=== PATIENT | female | born 1945 | race Caucasian/White ===

== ENCOUNTER 2018-10-10 12:35 | Observation (INO) ==
--- NOTE | 2018-10-10 13:40 | XRay Report ---
XR chest 1V portable CLINICAL HISTORY: sob dyspnea COMPARISON STUDY: 10/04/2016 FINDINGS: Mild cardiomegaly. Prominent pulmonary vasculature. Diaphragms are smooth. IMPRESSION: Developing congestive heart failure. The above report was generated using voice recognition software. It may contain grammatical, syntax or spelling errors. Electronically signed by: Tino Mendez M.D. 10/10/2018 1:39 PM
[2018-10-10 13:51] LABS: Basophils # (auto) 0.02 K/uL (0-0.2); Basophils % (auto) 0.2 %; Eosinophils # (auto) 0.14 K/uL (0-0.5); Eosinophils % (auto) 1.7 %; Hematocrit (blood only) 32.3 % (37-47); Hemoglobin 9.7 g/dL (12.0-16.0); Immature Granulocytes # (auto) 0.01 K/uL (0.00-0.02); Immature Granulocytes % (auto) 0.1 %; Lymphocytes # (auto) 1.49 K/uL (1.2-3.4); Lymphocytes % (auto) 17.7 %; Mean Corpuscular Volume 77.5 fL (80-100); Mean Platelet Volume 8.9 fL (7.4-10.4); Monocytes # (auto) 0.61 K/uL (0.11-0.59); Monocytes % (auto) 7.3 %; Neutrophils # (auto) 6.14 K/uL (1.4-6.5); Platelet Count 245 K/uL (130-400); RDW Coefficient of Variation 15.7 % (11.5-14.5); RDW Standard Deviation 44.5 fL (36.4-46.3); Red Blood Count 4.17 M/uL (4.2-5.4); White Blood Count 8.41 K/uL (4.8-10.8)
[2018-10-10 14:00] LABS: INR 1.1 (0.9-1.1); Partial Thromboplastin Ratio 1.1; Partial Thromboplastin Time 28.8 Seconds (21.0-31.0); Prothrombin Time 11.2 Seconds (9.0-12.0)
[2018-10-10 14:08] LABS: Alanine Aminotransferase 16 U/L (12-78); Albumin Level 3.1 gm/dl (3.4-5.0); Aspartate Aminotransferase 12 U/L (15-37); BUN Creatinine Ratio 14.1 (10-20); Blood Urea Nitrogen 16 mg/dl (7-18); Calcium 8.5 mg/dl (8.5-10.1); Carbon Dioxide 27 mmol/L (21-32); Chloride 103 mmol/L (98-107); Est GFR (African American) 56.8; Glucose 107 mg/dl (70-99); Magnesium 1.9 mg/dl (1.8-2.4); Potassium 4.2 mmol/L (3.5-5.1); Sodium 137 mmol/L (136-145)
[2018-10-10 14:19] LABS: Albumin Globulin Ratio 0.7 (0.9-2); Alkaline Phosphatase 127 U/L (45-117); Bilirubin,Total 0.3 mg/dl (0.1-1); Globulin 4.4 gm/dl (2.5-4.0); Total Protein 7.5 gm/dl (6.4-8.2); Troponin I < 0.015 ng/ml (0-0.045)
--- NOTE | 2018-10-10 14:40 | Ultrasound Report ---
US abdomen limited HISTORY: Trauma. Pain. trauma to left upper quad, poss spleen injury. COMPARISON: None. FINDINGS: Pancreas: The pancreas demonstrates a normal echotexture. Liver: Unremarkable. Spleen. Maximum dimension 13 cm. Uniform echogenicity. No perisplenic fluid. Left kidney. Maximum dimension 10.8 cm. No evidence for hydronephrosis. 3.5 cm mid and upper pole cys t. IMPRESSION: 1. Several left renal cysts. 2. Normal left kidney and spleen. 3. No acute process is appreciated. The above report was generated using voice recognition software. It may contain grammatical, syntax or spelling errors. Electronically signed by: Tino Mendez M.D. 10/10/2018 2:39 PM
--- NOTE | 2018-10-10 14:43 | Ultrasound Report ---
US venous doppler LE LT CLINICAL HISTORY: Torus of breath. Left lower extremity swelling. COMPARISON STUDY: No previous studies for comparison. FINDINGS: Real-time and color flow Doppler imaging were performed. Flow was seen within the femoral, popliteal and calf veins with no intraluminal thrombus demonstrated. The saphenous vein is patent. IMPRESSION: No evidence of left lower extremity DVT. Electronically signed by: Augustine Rebolledo M.D. 10/10/2018 2:41 PM
[2018-10-10 15:58] LABS: Appearance Urine Clear (Clear); Bilirubin Urine Negative (Negative); Color Urine Yellow; Glucose Urine UA Negative (Negative); Ketones Urine Negative (Negative); Leukocyte Esterase Urine Negative (Negative); Nitrite Urine Negative (Negative); Protein Urine Negative (Negative); Specific Gravity Urine 1.014 (1.000-1.030); Urobilinogen Urine Negative (Negative)
--- NOTE | 2018-10-10 16:53 | History & Physical Report ---
Date of Service October 10, 2018 Assessment & Plan (1) Chest pain, precordial: This is a 73-year-old white female with significant past medical history of HTN , HLD, CKD stage III, GERD, depression, osteoarthritis, chronic back pain, T2 DM who presents to [facility] secondary to dyspnea on exertion times 1 month/chest pain times 1 day. In ED workup revealed microcytic anemia hemoglobin 9.7, hematocrit 32.3, platelets 245, WBC 8.4, BUN 16, creatinine 1.12, glucose 107, TSH 1.54, BNP 46, troponin within limits. CXR reveals cardiomegaly and concern for CHF; however BNP wnl. LLE venous U/S negative, LUQ U/S negative for acute abnormality, except L renal cysts. Chest pain is reproducible with known inciting event. No significant ST T wave ecg changes, troponin, bnp with in limits Most likely MSK in etiology, treat conservatively Patient with cardiac risk factors including T2DM, HTN, HLD, Morbid obesity Given risk factors will admit to r/o Life altering causes of chest pain and STARK -admit to telemetry under observation -consult cardiology, known to Tino Vaughn -had echo 05/17 EF 60-64%, grade 1DD, inferior wall motion abn which is unchanaged -given new onset STARK, will repeat Echo -daily ecg r/o arrhythmia -anemia w/u with iron panel, vit b12, folate -had sleep study as outpatient 10/07, await results -no apparent hypoxia, tachycardia, low risk for PE per Wells criteria -?obstructive vs restrictive pulmonary process (2) STARK (dyspnea on exertion): -DDx broad including Cardiac like CAD, Pulm HTN, CHF, EVELIA, Pulmonary COPD vs restrictive process, Anemia, obesity or obesity -hypoventilation syndrome, deconditioning, PE -further work up noted above (3) Microcytic anemia: -repeat CBC in a.m. -anemia w/u including iron panel, vit b12, folate -FOBT -last colonoscopy 07/2017 with hyperplastic polyp -H/H 05/17 was 11.1 and 35.9 (4) HTN (hypertension): -repeat BP was 139/90 -continue metoprolol, losartan, HCTZ -ideal < 130/80 given T2DM (5) HLD (hyperlipidemia): -continue statin -fasting lipid panel in a.m. (6) T2DM (type 2 diabetes mellitus): -A1C 7.0 10/03/18 -recently started on metformin, will hold while inpatient -Novolog ISS per protocol -on losartan for renal protection (7) CKD (chronic kidney disease) stage 3, GFR 30-59 ml/min: -baseline creatinine 1.0 -renal fxn stable (8) Obesity: -encourage lifestyle modifications (9) GERD (gastroesophageal reflux disease): -continue PPI (10) Depression: -continue zoloft (11) DVT prophylaxis: -lovenox 40mg SQ Q24hr Disposition: D/C to home when medically able Follow up: with PCP Dr. Cool/Sherley Angel PA-C upon discharge Patient seen in collaboration with Dr. Vaughn, please see addendum History of Present Illness Chief Complaint: Dyspnea on exertion times 1 month/chest pain times 1 day. Primary Care Provider: Jonny Cool This is a 73-year-old white female with significant past medical history of HTN , HLD, CKD stage III, GERD, depression, osteoarthritis, chronic back pain, T2 DM who presents to [facility] secondary to dyspnea on exertion times 1 month/chest pain times 1 day. Patient presented at request of PCP who saw patient in office earlier in the afternoon. Patient notes yesterday she was bending over to picket [employer] items off the floor, bent over couch armrest when she felt a, "pop," in her left chest wall. She has been having left-sided chest discomfort since event. Has not tried anything over-the- counter. Worse with touch, left arm movement. Nothing makes better. Rated approximately 5/10. Further significance patient has been experiencing dyspnea on exertion for the past 1 month. Symptoms progressively worsening. Gets STARK even with daily activities including cooking, bathing, dressing. States she would be unable to get up off the bed and walk to her ER room door. Prior to the past month she feels she would be able to walk 1 to 2 [address] without any shortness of breat; however she would get back pain. She denies any recent illness, fever, chills, sweats, lightheadedness, dizziness, syncope, palpitations, hemoptysis, cough, nausea, vomiting, diarrhea, abdominal pain, hematuria, hematochezia, melena. Denies kinga orthopnea but states she is unable to sleep on her back, uses 2 pillows. Appetite has been stable. Denies unintentional weight loss. 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 Recently had a sleep study on 10/07/18. Allergies Allergy/AdvReac Type Severity Reaction Status Date / Time No Known Allergies Allergy Unverified 10/04/16 16:52 Home Medications Home Medications Medication Instructions Recorded Confirmed Type ospiuep-ysktgbyhxbpog-finhavoq 2 tab PO Q6H PRN 10/10/18 10/10/18 History [Excedrin Migraine] atorvastatin 20 mg PO DAILY 10/10/18 10/10/18 History buspirone 15 mg PO BID 10/10/18 10/10/18 History docusate sodium [Stool Softener] 100 mg PO DAILY 10/10/18 10/10/18 History hydrochlorothiazide 12.5 mg PO DAILY 10/10/18 10/10/18 History loratadine 10 mg PO DAILY 10/10/18 10/10/18 History losartan 50 mg PO DAILY 10/10/18 10/10/18 History metformin 500 mg PO BID 10/10/18 10/10/18 History metoprolol succinate 25 mg PO DAILY 10/10/18 10/10/18 History upmyubgy-mcw-fzbk-FA-lutein 1 tab PO DAILY 10/10/18 10/10/18 History [Centrum Silver Women] omeprazole 40 mg PO DAILY 10/10/18 10/10/18 History ondansetron 4 mg PO Q6 PRN 10/10/18 10/10/18 History sertraline 100 mg PO DAILY 10/10/18 10/10/18 History tramadol 50 mg PO QID PRN 10/10/18 10/10/18 History Past Med/Surg History Medical History HTN (hypertension) HLD (hyperlipidemia) T2DM (type 2 diabetes mellitus) CKD (chronic kidney disease) stage 3, GFR 30-59 ml/min Microcytic anemia Obesity GERD (gastroesophageal reflux disease) Osteoarthritis Depression Carotid stenosis DJD (degenerative joint disease) Surgical History History of bilateral knee arthroplasty History of arthroplasty of right shoulder History of total hysterectomy with bilateral salpingo-oophorectomy (BSO) History of cataract extraction History of hernia repair History of cholecystectomy Family History Father Colon cancer Mother Diabetes Other Family history non-contributory Social History marital status: marital status details: 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 Safe at Home: Yes Smoking Status: Former smoker Years Smoked: 15 Cigarettes per Day: 10-20 Smoking End Date: 1974 Hx Alcohol Use: Yes Alcohol Intake Frequency: holidays/special occasions only Hx Substance Use: No Preferred Language: [place] Review of Systems All systems reviewed & are unremarkable except as noted in HPI & below Physical Exam 2 Vital Signs (Past 24 Hours): Last Vital Signs Temp 36.6 C 10/10/18 12:44 Pulse 87 10/10/18 16:00 Resp 18 10/10/18 16:00 BP 186/106 H 10/10/18 16:00 Pulse Ox 96 10/10/18 16:00 Physical Exam: Gen: Morbidly obese F, NAD, sitting up in bed, flat affected, conversing easily, no SOB w/ conversation Head: Normocephalic, Atraumatic Eyes: Sclera normal, no conjunctival injection, PERRLA, EOMI ENT: Gross hearing intact, normal pharynx, mucous membranes dry Neck: supple, no adenopathy, No JVD, Resp: Clear to auscultation b/l, no wheeze, rales, rhonchi. 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 Extremities: LLE >RLE but no kinga edema bilaterally Skin: warm, moist, no rash, negative turgor, cap refill < 2sec Neuro: Alert and oriented x 3, speech normal,flat mood/affect, cran nerve 2-12 intact grossly : deferred Results & Data Laboratory Results Short CBC 10/10/18 Range/Units 13:30 WBC 8.41 (4.8-10.8) K/uL Hgb 9.7 L (12.0-16.0) g/dL Hct 32.3 L (37-47) % Plt Count 245 (130-400) K/uL BMP 10/10/18 13:30 Sodium 137 Potassium 4.2 Chloride 103 Carbon Dioxide 27 BUN 16 Creatinine 1.12 Glucose 107 H Calcium 8.5 Cardiac Enzymes 10/10/18 Range/Units 13:30 Troponin I < 0.015 (0-0.045) ng/ml Liver Function 10/10/18 Range/Units 13:30 Total Bilirubin 0.3 (0.1-1) mg/dl AST 12 L (15-37) U/L ALT 16 (12-78) U/L Alkaline Phosphatase 127 H (45-117) U/L Albumin 3.1 L (3.4-5.0) gm/dl Urine 10/10/18 Range/Units 15:25 Urine Color Yellow Urine Appearance Clear (Clear) Urine pH 5.0 (4.5-7.5) Ur Specific [place] 1.014 (1.000-1.030) Urine Protein Negative (Negative) Urine Glucose (UA) Negative (Negative) Diagnostic Findings LLE Venous doppler: FINDINGS: Real-time and color flow Doppler imaging were performed. Flow was seen within the femoral, popliteal and calf veins with no intraluminal thrombus demonstrated. The saphenous vein is patent. IMPRESSION: No evidence of left lower extremity DVT. CXR: FINDINGS: Mild cardiomegaly. Prominent pulmonary vasculature. Diaphragms are smooth. IMPRESSION: Developing congestive heart failure. Abd U/S: IMPRESSION: 1. Several left renal cysts. 2. Normal left kidney and spleen. 3. No acute process is appreciated. ECG Rate (beats per minute): 98 Rhythm: normal sinus Code Status & VTE Plan Code Status Full Code VTE Prophylaxis Plan VTE Prophylaxis will be ordered: Yes Supervising Physician Co-Signing Physician Notes I have seen and examined the patient and have discussed the case with the provider above. I agree with the assessment and plan as stated. Will rule out ACS overnight although agree with likely musculoskeletal etiology. On exam intercostal muscles the left anterior chest wall are exquisitely tender to palpation. She specifically mentioned bending down standing back up and feeling a strain in this area. Agree with repeat echo in the morning as new symptoms have evolved since prior echo in April. If no improvement with pain control efforts, may consider chest CT to rule out displaced rib fracture. Feel this is less likely right now as patient was not sure she heard a pop and there was no trauma to her chest wall. Cardiology to see patient in the morning. Roderick, DO
--- NOTE | 2018-10-10 16:54 | Emergency Department Note ---
Entered by Walter Leahy acting as a scribe for History of Present Illness General Chief complaint: Referred by Doctor Stated complaint: SENT BY DOCTOR Time Seen by Provider: 10/10/18 12:57 Source: patient Limitations: no limitations History of Present Illness Provider complaint: left rib pain Onset (ago): day(s) (2) Location: abdomen (Left ribs) Radiation: extremity (Left shoulder) Pain Consistency: + constant Maximum Pain Intensity: 8 Quality: + other ("Broke ribs or pulled muscle" ) Associated symptoms: + chest pain (Heaviness) and + shortness of breath The patient is a 73 year old female who presents to the Emergency Room with complaints of constant pain over her left ribs that began 2 days ago. The patient states that she "bent over the arm of her couch" two days ago to pick something up and heard a "crack" in her left side. She has had constant pain over the left ribs since this episode, which she describes as feeling like a "broken rib or pulled muscle." She describes the severity of the pain yesterday as "terrible" and adds that it does intermittently radiate up into the left shoulder. She visited with her primary care office in [facility] who referred her to the Emergency Department for EKG changes. The patient notes that she has felt unusually short of breath intermittently for the past 1.5 months. This shortness of breath is worsened with exertion and presents with associated chest "heaviness." She has not had any fevers. She has no history of myocardial infarctions, but notes she does have carotid stenosis. The patient had a nuclear stress test performed 1 year ago and was told that she "did good" on the evaluation. Home Medications Home Medications Medication Instructions Recorded Confirmed Type beawwvg-eaamiaigglqis-[id number] 2 tab PO Q6H PRN 10/10/18 10/10/18 History [Excedrin Migraine] atorvastatin 20 mg PO DAILY 10/10/18 10/10/18 History buspirone 15 mg PO BID 10/10/18 10/10/18 History docusate sodium [Stool Softener] 100 mg PO DAILY 10/10/18 10/10/18 History hydrochlorothiazide 12.5 mg PO DAILY 10/10/18 10/10/18 History loratadine 10 mg PO DAILY 10/10/18 10/10/18 History losartan 50 mg PO DAILY 10/10/18 10/10/18 History metformin 500 mg PO BID 10/10/18 10/10/18 History metoprolol succinate 25 mg PO DAILY 10/10/18 10/10/18 History ikshpkjx-geb-qhfh-FA-lutein 1 tab PO DAILY 10/10/18 10/10/18 History [Centrum Silver Women] omeprazole 40 mg PO DAILY 10/10/18 10/10/18 History ondansetron 4 mg PO Q6 PRN 10/10/18 10/10/18 History sertraline 100 mg PO DAILY 10/10/18 10/10/18 History tramadol 50 mg PO QID PRN 10/10/18 10/10/18 History Allergies Allergy/AdvReac Type Severity Reaction Status Date / Time No Known Allergies Allergy Unverified 10/04/16 16:52 Past Med/Surg History Medical History HTN (hypertension) HLD (hyperlipidemia) T2DM (type 2 diabetes mellitus) CKD (chronic kidney disease) stage 3, GFR 30-59 ml/min Microcytic anemia Obesity GERD (gastroesophageal reflux disease) Osteoarthritis Depression Carotid stenosis DJD (degenerative joint disease) Surgical History History of bilateral knee arthroplasty History of arthroplasty of right shoulder History of total hysterectomy with bilateral salpingo-oophorectomy (BSO) History of cataract extraction History of hernia repair History of cholecystectomy Family History Father Colon cancer Mother Diabetes Other Family history non-contributory Social History marital status: 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 and A total of 10 systems reviewed and were otherwise negative Physical Exam Vital Signs Vital Signs - 24 hr 10/10/18 12:44 10/10/18 13:23 10/10/18 14:00 Temperature 36.6 C Temperature Source Oral Sepsis Recent Fever Within 48 Hours No Sepsis New/Unexplained Change in Mental Status No Sepsis Action Taken by Nursing No Action Required Pulse Rate 94 H 94 H Pulse Rate [Apical] 82 Pulse Rhythm [Apical] Regular Respiratory Rate 22 22 20 Respiratory Effort / Characteristics Respiratory Depth Normal Blood Pressure 159/90 H Blood Pressure [Left Arm] 115/91 Blood Pressure Mean 113 Blood Pressure Mean [Left Arm] 99 Pulse Oximetry 96 96 100 Oxygen Delivery Method Room Air Room Air Room Air 10/10/18 16:00 10/10/18 18:00 10/10/18 18:28 Temperature Temperature Source Sepsis Recent Fever Within 48 Hours Sepsis New/Unexplained Change in Mental Status Sepsis Action Taken by Nursing Pulse Rate 80 Pulse Rate [Apical] 87 Pulse Rhythm [Apical] Regular Respiratory Rate 18 18 Respiratory Effort / Characteristics SOB on Exertion Respiratory Depth Normal Blood Pressure 137/90 Blood Pressure [Left Arm] 186/106 H Blood Pressure Mean Blood Pressure Mean [Left Arm] 132 Pulse Oximetry 96 96 Oxygen Delivery Method Room Air Room Air Room Air GENERAL: Patient is in no acute distress. HEENT: No acute trauma, normocephalic atraumatic, mucous membranes moist, no nasal congestion, no scleral icterus. CHEST: There is tenderness to the left lateral and anterior low ribs. No contusion present. NECK: No stridor, no adenopathy, no meningismus, trachea is midline. LUNGS: Clear to auscultation bilaterally, no wheeze, no rhonchi, breath sounds equal. HEART: Without murmurs gallops or rubs, regular rate and rhythm. ABDOMEN: Soft, with tenderness to the left upper quadrant, bowel sounds positive , no hernias, no peritonitis. EXTREMITIES: Mild bilateral pedal edema worse on the left, full range of motion of all the joints without pain or difficulty, no signs for acute trauma. NEUROLOGIC: Oriented x 3, no acute motor or sensory deficits, no focal weakness. SKIN: No rash, no jaundice, no diaphoresis. Course 1301: Past medical records reviewed. The patient was evaluated in room C11B, and a complete history and physical examination were performed. 1538: I reviewed the patient's case with [facility] Hospitalist BHAVIN. She will evaluate the patient for further management. 1547: I updated the patient at this time. She expresses understanding and agreement with the treatment plan. Consultations Consultation #1: [id number]: I reviewed the patient's case with [facility] Hospitalist BHAVIN. She will evaluate the patient for further management. Medical Decision Making Differential Diagnosis Differential Diagnosis includes: anemia, AR, angina, COPD, pneumonia, CHF, DVT , PE, rib fracture, and splenic injury. Medical Records Attestation: I reviewed the patient's medical records. Home Medications Current Medication List: was personally reviewed by me Laboratory Data Attestation: I reviewed the patient's lab results. Result diagrams: 10/10/18 13:30 10/10/18 13:30 Lab Results 10/10/18 10/10/18 10/10/18 Range/Units 13:30 13:30 13:30 WBC 8.41 (4.8-10.8) K/uL RBC 4.17 L (4.2-5.4) M/uL Hgb 9.7 L (12.0-16.0) g/dL Hct 32.3 L (37-47) % MCV 77.5 L (80-100) fL MCH 23.3 L (25-34) pg MCHC 30.0 L (32-36) g/dL RDW Std Deviation 44.5 (36.4-46.3) fL RDW Coeff of Elizabeth 15.7 H (11.5-14.5) % Plt Count 245 (130-400) K/uL MPV 8.9 (7.4-10.4) fL Immature Gran % (Auto) 0.1 % Neut % (Auto) 73.0 % Lymph % (Auto) 17.7 % Knox % (Auto) 7.3 % Eos % (Auto) 1.7 % Baso % (Auto) 0.2 % Immature Gran # (Auto) 0.01 (0.00-0.02) K/uL Neut # (Auto) 6.14 (1.4-6.5) K/uL Lymph # (Auto) 1.49 (1.2-3.4) K/uL Knox # (Auto) 0.61 H (0.11-0.59) K/uL Eos # (Auto) 0.14 (0-0.5) K/uL Baso # (Auto) 0.02 (0-0.2) K/uL PT 11.2 (9.0-12.0) Seconds INR 1.1 (0.9-1.1) APTT 28.8 (21.0-31.0) Seconds PTT Ratio 1.1 Sodium 137 (136-145) mmol/L Potassium 4.2 (3.5-5.1) mmol/L Chloride 103 (98-107) mmol/L Carbon Dioxide 27 (21-32) mmol/L Anion Gap 7.0 (3-11) BUN 16 (7-18) mg/dl Creatinine 1.12 (0.6-1.2) mg/dl Est Cr Clr Drug Dosing 57.0 ml/min Est GFR ( Amer) 56.8 Est GFR (Non-Af Amer) 49.0 BUN/Creatinine Ratio 14.1 (10-20) Glucose 107 H (70-99) mg/dl Calcium 8.5 (8.5-10.1) mg/dl Magnesium 1.9 (1.8-2.4) mg/dl Total Bilirubin 0.3 (0.1-1) mg/dl AST 12 L (15-37) U/L ALT 16 (12-78) U/L Alkaline Phosphatase 127 H (45-117) U/L Troponin I < 0.015 (0-0.045) ng/ml NT-Pro-B Natriuret Pep (0-900) pg/ml Total Protein 7.5 (6.4-8.2) gm/dl Albumin 3.1 L (3.4-5.0) gm/dl Globulin 4.4 H (2.5-4.0) gm/dl Albumin/Globulin Ratio 0.7 L (0.9-2) TSH 1.540 (0.300-4.500) uIu/ml Urine Color Urine Appearance (Clear) Urine pH (4.5-7.5) Ur Specific [place] (1.000-1.030) Urine Protein (Negative) Urine Glucose (UA) (Negative) Urine Ketones (Negative) Urine Blood (Negative) Urine Nitrite (Negative) Urine Bilirubin (Negative) Urine Urobilinogen (Negative) Ur Leukocyte Esterase (Negative) 10/10/18 10/10/18 Range/Units 13:30 15:25 WBC (4.8-10.8) K/uL RBC (4.2-5.4) M/uL Hgb (12.0-16.0) g/dL Hct (37-47) % MCV (80-100) fL MCH (25-34) pg MCHC (32-36) g/dL RDW Std Deviation (36.4-46.3) fL RDW Coeff of Elizabeth (11.5-14.5) % Plt Count (130-400) K/uL MPV (7.4-10.4) fL Immature Gran % (Auto) % Neut % (Auto) % Lymph % (Auto) % Knox % (Auto) % Eos % (Auto) % Baso % (Auto) % Immature Gran # (Auto) (0.00-0.02) K/uL Neut # (Auto) (1.4-6.5) K/uL Lymph # (Auto) (1.2-3.4) K/uL Knox # (Auto) (0.11-0.59) K/uL Eos # (Auto) (0-0.5) K/uL Baso # (Auto) (0-0.2) K/uL PT (9.0-12.0) Seconds INR (0.9-1.1) APTT (21.0-31.0) Seconds PTT Ratio Sodium (136-145) mmol/L Potassium (3.5-5.1) mmol/L Chloride (98-107) mmol/L Carbon Dioxide (21-32) mmol/L Anion Gap (3-11) BUN (7-18) mg/dl Creatinine (0.6-1.2) mg/dl Est Cr Clr Drug Dosing ml/min Est GFR ( Amer) Est GFR (Non-Af Amer) BUN/Creatinine Ratio (10-20) Glucose (70-99) mg/dl Calcium (8.5-10.1) mg/dl Magnesium (1.8-2.4) mg/dl Total Bilirubin (0.1-1) mg/dl AST (15-37) U/L ALT (12-78) U/L Alkaline Phosphatase (45-117) U/L Troponin I (0-0.045) ng/ml NT-Pro-B Natriuret Pep 46 (0-900) pg/ml Total Protein (6.4-8.2) gm/dl Albumin (3.4-5.0) gm/dl Globulin (2.5-4.0) gm/dl Albumin/Globulin Ratio (0.9-2) TSH (0.300-4.500) uIu/ml Urine Color Yellow Urine Appearance Clear (Clear) Urine pH 5.0 (4.5-7.5) Ur Specific [place] 1.014 (1.000-1.030) Urine Protein Negative (Negative) Urine Glucose (UA) Negative (Negative) Urine Ketones Negative (Negative) Urine Blood Negative (Negative) Urine Nitrite Negative (Negative) Urine Bilirubin Negative (Negative) Urine Urobilinogen Negative (Negative) Ur Leukocyte Esterase Negative (Negative) Imaging Data Attestation: I personally reviewed and interpreted this imaging study as follows : Radiologist's Impression: US venous doppler LE LT CLINICAL HISTORY: Torus of breath. Left lower extremity swelling. COMPARISON STUDY: No previous studies for comparison. FINDINGS: Real-time and color flow Doppler imaging were performed. Flow was seen within the femoral, popliteal and calf veins with no intraluminal thrombus demonstrated. The saphenous vein is patent. IMPRESSION: No evidence of left lower extremity DVT. Electronically signed by: Augustine Rebolledo M.D. 10/10/2018 2:41 PM XR chest 1V portable CLINICAL HISTORY: sob dyspnea COMPARISON STUDY: 10/04/2016 FINDINGS: Mild cardiomegaly. Prominent pulmonary vasculature. Diaphragms are smooth. IMPRESSION: Developing congestive heart failure. The above report was generated using voice recognition software. It may contain grammatical, syntax or spelling errors. Electronically signed by: Tino Mendez M.D. 10/10/2018 1:39 PM US abdomen limited HISTORY: Trauma. Pain. trauma to left upper quad, poss spleen injury. COMPARISON: None. FINDINGS: Pancreas: The pancreas demonstrates a normal echotexture. Liver: Unremarkable. Spleen. Maximum dimension 13 cm. Uniform echogenicity. No perisplenic fluid. Left kidney. Maximum dimension 10.8 cm. No evidence for hydronephrosis. 3.5 cm mid and upper pole cyst. IMPRESSION: 1. Several left renal cysts. 2. Normal left kidney and spleen. 3. No acute process is appreciated. The above report was generated using voice recognition software. It may contain grammatical, syntax or spelling errors. Electronically signed by: Tino Mendez M.D. 10/10/2018 2:39 PM ECG Data Attestation: I personally reviewed and interpreted this ECG as follows: Indication: chest pain and SOB/dyspnea Rate (beats per minute): 98 Rhythm: normal sinus Findings: no PVC, no ST depression and no ST elevation Blood Pressure Blood Pressure Findings: Elevated blood pressure Blood Pressure Disposition: further management by hospitalist CARLI Narrative There is no leukocytosis. The patient is somewhat anemic, she has been anemic before although today's value is slightly lower than her values from the past. The hemoglobin will need followed. Her anemia may be causing some of her dyspnea. There is no significant electrolyte abnormality or kidney failure. No hepatitis. There was no coagulopathy. EKG showed a sinus rhythm, no acute ischemia. Cardiac enzyme testing x1 was not consistent with acute cardiac injury. The patient appeared to be in a euthyroid state. Urinalysis did not show evidence for infection. Left leg ultrasound did not show DVT. Chest film did not show pneumonia, a mild CHF was thought possible as per radiology. Abdominal ultrasound showed a normal spleen. BNP was not elevated making fluid overload less likely. The patient presents with dyspnea which is exertional. She has noticed pressure across the chest as well. She has to stop and rest and catch her breath. I do think further cardiac workup is warranted. Her hemoglobin needs followed as she is somewhat anemic. I do not believe she is in heart failure. A hospital stay is required. I spoke to the patient and business case analyst. The on- call hospitalist was consulted. Impression & Plan Chest pain, precordial, SOB (shortness of breath), Anemia Discharge Plan Visit Data *Final* Discharge Date/Time: 10/10/18 18:00 Chief Complaint: Referred by Doctor Stated Complaint: SENT BY DOCTOR ED Provider: Shen Herr Discharge Problem: Chest pain, precordial, SOB (shortness of breath), Anemia Patient Disposition: Admitted As Inpatient Discharge Instructions Interventions: ED Discharge Assessment Last Done: 10/10/18 18:00 The nubiaiblucille's documentation has been prepared under my direction and personally reviewed by me in its entirety. I confirm that the note above accurately reflects all work, treatment, procedures, and medical decision making performed by me.
[2018-10-10] MEDS ORDERED: GLUCOSE 10 TABS/TUBE PO PRN (18:26)
[2018-10-10] MEDS ORDERED: MAGNESIUM HYDROXIDE SUSP 30 ML UDC PO PRN (18:26)
[2018-10-10] MEDS ORDERED: ACETAMINOPHEN 325 MG TAB PO PRN (18:26)
[2018-10-10] MEDS ORDERED: GLUCAGON FOR INJ 1 MG VIAL SQ PRN (18:26)
[2018-10-10] MEDS ORDERED: DEXTROSE 50% 50 ML SYRINGE IV PRN (18:26)
[2018-10-10] MEDS ORDERED: ALUMINUM/MAGNESIUM SUSP 30 ML UDC PO PRN (18:26)
[2018-10-10] MEDS ORDERED: ONDANSETRON INJ 2 MG/ML 2 ML VIAL IV PRN (18:26)
[2018-10-10] MEDS ORDERED: POLYETHYLENE (MIRALAX) 17 GM PACK PO PRN (18:26)
[2018-10-10] MEDS ORDERED: CARBOHYDRATES FOR HYPOGLYCEMIA PO PRN (18:26)
[2018-10-10] MEDS ORDERED: GLUCOSE 40% GEL 15 GM TUBE PO PRN (18:26)
[2018-10-10] MEDS: BusPIRone 15 MG TAB PO SCH (20:12)
[2018-10-10] MEDS: INSULIN ASPART 100 UNITS/ML 3 ML PEN SC SCH (20:19)
[2018-10-10] MEDS ORDERED: OPTIRAY 320 125ml IV PRN (20:47)
[2018-10-10] MEDS ORDERED: ENOXAPARIN INJ 40 MG/0.4 ML SYR SQ SCH (21:00)
--- NOTE | 2018-10-10 21:26 | CT Scan Report ---
CT ANGIOGRAPHY OF THE CHEST, PULMONARY EMBOLUS PROTOCOL CLINICAL HISTORY: dyspnea of min exertion, severe left anterior CP COMPARISON STUDY: Chest CT October 04, 2016 and chest radiograph October 10, 2018. TECHNIQUE: Following IV administration of 116 mL of Optiray-320, helical axial images of the chest we re obtained utilizing the pulmonary embolus protocol. Maximal intensity projections and sagittal and coronal reformats were viewed on an independent 3D workstation. IV contrast was administered withou t complication. Automated exposure control was utilized for the study. A dose lowering technique wa s utilized adhering to the principles of ALARA. CT DOSE: 703.43 mGy.cm FINDINGS: No pulmonary emboli are identified although sensitivity is diminished given suboptimal vas cular opacification respiratory motion artifact. There is significant dilatation of the central pulmo nary arteries. The heart is mildly enlarged. There is moderate coronary artery calcification. There i s no pericardial effusion. No enlarged thoracic lymph nodes are present. Several old left-sided rib f ractures are present. There is an acute appearing nondisplaced fracture the anterior left sixth rib. There is no consolidation to suggest pneumonia. No pneumothorax or pleural effusion is noted. Note is made of a 3.1 cm lesion arising from the upper pole of the left kidney which is partially imaged on this exam. The majority of this lesion measures water attenuation. A small portion may measure above water attenuation. IMPRESSION: 1. No pulmonary emboli identified although evaluation compromised given suboptimal opacification and respiratory motion artifact. 2. Significant dilatation of the central pulmonary arteries highly suggestive of pulmonary arterial h ypertension. 3. Acute appearing nondisplaced anterior left sixth rib fracture. No pneumothorax. 4. 3.1 cm left renal lesion partially unenhanced exam. This favors a cyst however a small portion of this lesion may measure above water attenuation. Therefore, a follow-up nonemergent renal ultrasound is recommended. Electronically signed by: Godfrey Garcia M.D. 10/10/2018 9:24 PM
[2018-10-10] MEDS ORDERED: LIDOCAINE 5% 1 PATCH TD SCH (22:45)
[2018-10-10] MEDS ORDERED: OXYCODONE/APAP 7.5/325MG TAB PO STA (22:45)
[2018-10-11] MEDS: OXYCODONE/APAP 7.5/325MG TAB PO PRN ×3 (03:18→11:56)
[2018-10-11 06:29] LABS: Basophils # (auto) 0.02 K/uL (0-0.2); Basophils % (auto) 0.3 %; Eosinophils # (auto) 0.13 K/uL (0-0.5); Eosinophils % (auto) 1.7 %; Hematocrit (blood only) 32.4 % (37-47); Immature Granulocytes # (auto) 0.01 K/uL (0.00-0.02); Immature Granulocytes % (auto) 0.1 %; Lymphocytes # (auto) 1.86 K/uL (1.2-3.4); Lymphocytes % (auto) 24.5 %; Mean Corpuscular Hgb Conc 30.9 g/dL (32-36); Mean Corpuscular Volume 76.1 fL (80-100); Mean Platelet Volume 8.9 fL (7.4-10.4); Monocytes # (auto) 0.47 K/uL (0.11-0.59); Monocytes % (auto) 6.2 %; Neutrophils % (auto) 67.2 %; Platelet Count 243 K/uL (130-400); RDW Coefficient of Variation 15.6 % (11.5-14.5); RDW Standard Deviation 43.4 fL (36.4-46.3); Red Blood Count 4.26 M/uL (4.2-5.4); Reticulocyte % 1.7 % (0.5-2.0); Reticulocytes # 0.07 10^6/uL (0.02-0.10); White Blood Count 7.59 K/uL (4.8-10.8)
[2018-10-11 06:59] LABS: BUN Creatinine Ratio 12.3 (10-20); Blood Urea Nitrogen 12 mg/dl (7-18); Calcium 8.6 mg/dl (8.5-10.1); Carbon Dioxide 26 mmol/L (21-32); Chloride 101 mmol/L (98-107); Cholesterol 108 mg/dl (0-200); Creatinine Clr Calc Pharmacy 64.4 ml/min; Est GFR (Non-African American) 56.9; Glucose 120 mg/dl (70-99); Sodium 136 mmol/L (136-145)
[2018-10-11 07:04] LABS: Chol HDL Ratio 3; Ferritin 16.8 ng/ml (8-388); HDL Cholesterol 42 mg/dl; Iron 30 mcg/dl (35-150); LDL Cholesterol Calculated 30 mg/dl; Transferrin 324 mg/dl (200-360); Transferrin Percent Saturation 7 % (15-50); Triglycerides 182 mg/dl (0-150); Troponin I < 0.015 ng/ml (0-0.045); VLDL Cholesterol 36 mg/dl
[2018-10-11] MEDS: BusPIRone 15 MG TAB PO SCH (07:50)
[2018-10-11] MEDS: INSULIN ASPART 100 UNITS/ML 3 ML PEN SC SCH ×3 (07:55→17:52)
[2018-10-11 08:02] LABS: Folate (Folic Acid) 23.81 ng/ml (>5.38)
[2018-10-11] MEDS ORDERED: SERTRALINE HCL 100 MG TABLET PO SCH (09:00)
[2018-10-11] MEDS ORDERED: METOPROLOL SUCC 25MG EXT REL TAB PO SCH (09:00)
[2018-10-11] MEDS ORDERED: LOSARTAN POTASSIUM 50 MG TAB PO SCH (09:00)
[2018-10-11] MEDS ORDERED: DOCUSATE SODIUM 100 MG CAP PO SCH (09:00)
[2018-10-11] MEDS ORDERED: CEROVITE ADV FORMULA TAB PO SCH (09:00)
[2018-10-11] MEDS ORDERED: ATORVASTATIN 20 MG TAB PO SCH (09:00)
[2018-10-11] MEDS ORDERED: PANTOprazole 40 MG TAB PO SCH (09:00)
[2018-10-11] MEDS ORDERED: LORATADINE 10 MG TAB PO SCH (09:00)
[2018-10-11] MEDS ORDERED: hydroCHLOROthiazide 25 MG TAB PO SCH (09:00)
--- NOTE | 2018-10-11 10:21 | Cardiology Consultation ---
Date of Consultation October 11, 2018 Assessment & Plan (1) Left rib fracture: The patient's acute chest discomfort is likely explained from her left rib fracture. Imaging reveals no evidence of associated pleural effusion. The concern is that the patient is not able to take a deep breaths, and if her pain situation is not addressed, she will likely end up having problems with progressive atelectasis and pneumonia. If her pain cannot be controlled with less invasive means such as a Lidoderm patch, would consider pain management consultation for nerve block injection therapy. (2) STARK (dyspnea on exertion): Prior to the patient's recent acute discomfort she has been noting worsening shortness of breath with exertion. Pulmonary artery dilatation noted on CT scan, no significant pulmonary hypertension noted on echocardiogram. An outpatient sleep study had recently been performed the results of this are pending. There are no findings on her echocardiogram to correlate with her symptoms. She had a prior nonischemic dobutamine stress echocardiogram in 2017. It is noted that she has a microcytic anemia hemoglobin 9.7 on admission and 10 today. MCV 76 total iron 30, percent transferrin saturation 7. Review of outpatient labs globin a year ago in April 2017 was 12.5, trended down to 11.1 in April 2018, and now lower this admission. The patient underwent a screening colonoscopy for colon cancer screening in July 2017 as an outpatient with findings of a 6 mm polyp as well as diverticulosis of the sigmoid colon as well as nonbleeding external and internal hemorrhoids. It may be that her progressive decline in hemoglobin is contributing to her shortness of breath. It sounds as if her shortness of breath has been going on for several months. She has had testing as an outpatient and included a normal proBNP in April 2018. Regarding risk factor modification, it is noted that the patient is coronary artery calcification, and diabetes, but her cholesterol is most recently checked in December 2017 by direct LDL was 43 believe this is why she is not on a statin. I think at this time, we need to follow-up with a sleep test as an outpatient and optimize her hemoglobin. (3) Iron deficiency anemia: as noted above. History of Present Illness Attending Physician: Robert Parra MD History of Present Illness Reshma Del Angel is a 73-year-old female seen in cardiology consultation per the request of Loly León PA-C of the [facility] for the evaluation of chest discomfort and shortness of breath. Patient is known to the undersigned as I followed her on an outpatient basis in the past. The patient notes increasing left-sided chest discomfort with onset 2 days ago on 10/09/18. 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 She does not describe or whether or not she impacted her left flank/chest on the arm of the sulfa or if she was just close to it. She was seen as an acute patient by primary care yesterday and ultimately referred to the emergency room for further evaluation. On presentation last evening she was found to have exquisite chest wall tenderness on palpation underneath her left breast. A CT of the chest was performed which excluded significant pulmonary embolism but she was found to have a rib fracture of the left sixth rib which correlated well with her discomfort. She was also found to have moderate coronary artery calcification a 3.1 cm left renal lesion for which further evaluation with ultrasound was recommended, and dilatation of the central pulmonary arteries suggestive of possible underlying pulmonary hypertension. In addition to the recent acute onset chest discomfort the patient also notes recent exertional shortness of breath over the last 1 month. She notes this with activity such as walking her dog in the cold and feels as if she is wheezing. She recently performed a home sleep study but the results are not available yet. At present, the patient feels well, she is eager for discharge. She does note that she has a lot of pain with taking deep inspiration. Allergies Allergy/AdvReac Type Severity Reaction Status Date / Time No Known Allergies Allergy Unverified 10/04/16 16:52 Home Medications Home Medications Medication Instructions Recorded Confirmed Type tgzxvpo-xupygapecfchj-mtfnokwq 2 tab PO Q6H PRN 10/10/18 10/10/18 History [Excedrin Migraine] atorvastatin 20 mg PO DAILY 10/10/18 10/10/18 History buspirone 15 mg PO BID 10/10/18 10/10/18 History docusate sodium [Stool Softener] 100 mg PO DAILY 10/10/18 10/10/18 History hydrochlorothiazide 12.5 mg PO DAILY 10/10/18 10/10/18 History loratadine 10 mg PO DAILY 10/10/18 10/10/18 History losartan 50 mg PO DAILY 10/10/18 10/10/18 History metformin 500 mg PO BID 10/10/18 10/10/18 History metoprolol succinate 25 mg PO DAILY 10/10/18 10/10/18 History dnpccmbx-lhv-ocoh-FA-lutein 1 tab PO DAILY 10/10/18 10/10/18 History [Centrum Silver Women] omeprazole 40 mg PO DAILY 10/10/18 10/10/18 History ondansetron 4 mg PO Q6 PRN 10/10/18 10/10/18 History sertraline 100 mg PO DAILY 10/10/18 10/10/18 History tramadol 50 mg PO QID PRN 10/10/18 10/10/18 History Patient History Medical History HTN (hypertension) HLD (hyperlipidemia) T2DM (type 2 diabetes mellitus) CKD (chronic kidney disease) stage 3, GFR 30-59 ml/min Microcytic anemia Obesity GERD (gastroesophageal reflux disease) Osteoarthritis Depression Carotid stenosis DJD (degenerative joint disease) Surgical History History of bilateral knee arthroplasty History of arthroplasty of right shoulder History of total hysterectomy with bilateral salpingo-oophorectomy (BSO) History of cataract extraction History of hernia repair History of cholecystectomy Family History Father Colon cancer Mother Diabetes Other Family history non-contributory Social History marital status: 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 Other Information That Helps Us Care for You: No Feels Safe at Home: Yes Safety Concerns: Feels Safe At This Time Smoking Status: Never smoker Years Smoked: 15 Cigarettes per Day: 10-20 Smoking End Date: 1973 Hx Alcohol Use: Yes Alcohol Intake Frequency: holidays/special occasions only Hx Substance Use: No Beliefs That Will Affect Care: None Preferred Language: German Communication Ability: Effective 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: No Review of Systems 10 point review of systems is reviewed and is negative with the exception of that above Physical Exam 2 Vital Signs (Past 24 Hours): Last Vital Signs Temp 36.9 C 10/11/18 08:00 Pulse 80 10/11/18 08:00 Resp 18 10/11/18 08:00 BP 127/77 10/11/18 08:00 Pulse Ox 92 10/11/18 08:00 Physical Exam: General: no acute distress and stated age Eyes: conjunctiva are pink and non-injected, sclera clear Neck: normal jugular venous pulse, no hepatojugular reflux Chest: normal shape and normal respiratory effort Lungs: clear to auscultation and percussion Cardiac Exam: - regular heart sounds, no murmurs, rubs, or gallops, no jugular venous distention Abdomen: abdomen soft, non-tender, no abnormal masses and no hepatosplenomegaly Musculoskeletal: no gait disturbance, no weakness Extremities: no edema and no cyanosis Neuro:awake, coversant, follows commands, no focal motor deficits Psych: appropriate affect and insight. Results & Data Diagnostic Findings CT findings as described above Transthoracic echocardiogram performed earlier today and reviewed independently by the undersigned revealed normal left ventricular wall thickness, normal left ventricular wall motion, LVEF normal at 60-65% Mild aortic valve sclerosis without stenosis is noted. The right ventricular chamber size appears grossly normal on limited visualization with grossly normal RV systolic function. The tricuspid regurgitation jet is insufficient to allow estimation of the right ventricular and pulmonary artery systolic pressures. EKG performed 10/11/18 at 7:30 AM revealed normal sinus rhythm at 81 bpm, incomplete right bundle branch block, unchanged compared to prior outpatient EKG
--- NOTE | 2018-10-11 16:12 | Hospitalist Progress Note ---
Date of Service October 11, 2018 Assessment & Plan (1) Chest pain, precordial: This is a 73-year-old white female with significant past medical history of HTN , HLD, CKD stage III, GERD, depression, osteoarthritis, chronic back pain, T2 DM who presents to [facility] secondary to dyspnea on exertion times 1 month/chest pain times 1 day. In ED workup revealed microcytic anemia hemoglobin 9.7, hematocrit 32.3, platelets 245, WBC 8.4, BUN 16, creatinine 1.12, glucose 107, TSH 1.54, BNP 46, troponin within limits. CXR reveals cardiomegaly and concern for CHF; however BNP wnl. LLE venous U/S negative, LUQ U/S negative for acute abnormality, except L renal cysts. found to have non cardiac chest pain as causes likely from musculoskeletal etiology with left 6th rib fracture (closed fracture) on this admission (2) STARK (dyspnea on exertion): She had a prior nonischemic dobutamine stress echocardiogram in 2017. An outpatient sleep study had recently been performed the results of this are pending. Pulmonary artery dilatation noted on CT scan, no significant pulmonary hypertension noted on echocardiogram. There are no findings on her echocardiogram to correlate with her symptoms. prescribe daily iron for iron deficiency anemia found to have left 6th rib fracture (closed fracture) on this admission also found to have hypoxia with oxygen desaturation on exertion and was evaluated with respiratory therpist with 2 step test - discharge on 2 liter/min oxygen with ambulation (3) Microcytic anemia: -last colonoscopy 07/2017 with hyperplastic polyp -mild progressive downtrend of CBC -Hgb around 10, prescribe daily iron for iron deficiency anemia (4) HTN (hypertension): -continue metoprolol, losartan, HCTZ (5) HLD (hyperlipidemia): -continue statin (6) T2DM (type 2 diabetes mellitus): Type 2 diabetes mellitus without correction use of insulin -A1C 7.0 10/03/18 -continue metformin as outpatient -on losartan for renal protection (7) CKD (chronic kidney disease) stage 3, GFR 30-59 ml/min: baseline chronic kidney disease stage 3 3.1 cm left renal lesion partially unenhanced exam. This favors a cyst however a small portion of this lesion may measure above water attenuation. 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 Patient can continue outpatient tramadol as instructed for pain control In addition, because of diagnosis of left rib fracture, patient also given prescription oxycodone-acetaminophen (7.5 mg/ 325 mg ) every 4 hours as needed for pain for a total of 18 tablets Patient also discharged on home oxygen therapy as 2 liter per minute with ambulation Patient should take daily iron supplements Patient should follow up appointments 10/16/2018 5:40 PM Jonny Cool MD Internal Medicine [facility] ((3.1 cm left renal lesion likely renal cyst, follow-up nonemergent renal ultrasound is recommended)) 10/26/2018 11:00 AM Antonia Angel PA-C Department Internal Medicine [facility] 10/26/2018 2:00 PM RUIZ Tirado Sleep Disorders, [facility] 11/01/2018 11:15 AM Pattie Cevallos, Nutrition & Weight Management, [facility] 12/28/2018 2:00 PM Tino Kline PA-C Cardiology [facility] Subjective found to have hypoxia with oxygen desaturation on exertion and was evaluated with respiratory therapist with 2 step test - discharge on 2 liter/min oxygen with ambulation patient able to breath comfortably when on room air when not exerting herself Pain of of left rib appears controlled denies abdominal pain or back pain denies vomiting denies palpitations Physical Exam 2 Vital Signs (Past 24 Hours): Last Vital Signs Temp 36.9 C 10/11/18 16:00 Pulse 82 10/11/18 16:00 Resp 18 10/11/18 16:00 BP 101/65 10/11/18 16:00 Pulse Ox 92 10/11/18 16:00 Constitutional: WD/WN, vitals as above Eyes: PERRL, conjunctivae normal, anicteric sclerae ENMT: external ear and nose normal, oropharynx normal Neck: trachea midline, no thyromegaly Respiratory: normal respiratory effort, lungs clear to auscultation Cardiovascular: RRR, no murmur, no edema Gastrointestinal (Abdomen): normal bowel sounds, soft, nontender, no hepatosplenomegaly Neurologic: PERRL, EOMI, accommodation nl, no face palsy, no dysarthria CN' s II-XI intact bilaterally Psychiatric: A+Ox3, euthymic affect
--- NOTE | 2018-10-11 16:31 | Discharge Summary ---
Date of Service October 11, 2018 Admission HPI Per Admitting Provider This is a 73-year-old white female with significant past medical history of HTN , HLD, CKD stage III, GERD, depression, osteoarthritis, chronic back pain, T2 DM who presents to [facility] secondary to dyspnea on exertion times 1 month/chest pain times 1 day. Patient presented at request of PCP who saw patient in office earlier in the afternoon. Patient notes yesterday she was bending over to picker items off the floor, bent over couch armrest when she felt a, "pop," in her left chest wall. She has been having left-sided chest discomfort since event. Has not tried anything over-the- counter. Worse with touch, left arm movement. Nothing makes better. Rated approximately 5/10. Further significance patient has been experiencing dyspnea on exertion for the past 1 month. Symptoms progressively worsening. Gets STARK even with daily activities including cooking, bathing, dressing. States she would be unable to get up off the bed and walk to her ER room door. Prior to the past month she feels she would be able to walk 1 to 2 [address] without any shortness of breat; however she would get back pain. She denies any recent illness, fever, chills, sweats, lightheadedness, dizziness, syncope, palpitations, hemoptysis, cough, nausea, vomiting, diarrhea, abdominal pain, hematuria, hematochezia, melena. Denies kinga orthopnea but states she is unable to sleep on her back, uses 2 pillows. Appetite has been stable. Denies unintentional weight loss. 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 Recently had a sleep study on 10/07/18. Admission Exam Per Admitting Provider Gen: Morbidly obese F, NAD, sitting up in bed, flat affected, conversing easily , no SOB w/ conversation Head: Normocephalic, Atraumatic Eyes: Sclera normal, no conjunctival injection, PERRLA, EOMI ENT: Gross hearing intact, normal pharynx, mucous membranes dry Neck: supple, no adenopathy, No JVD, Resp: Clear to auscultation b/l, no wheeze, rales, rhonchi. 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 strength Extremities: LLE >RLE but no kinga edema bilaterally Skin: warm, moist, no rash, negative turgor, cap refill < 2sec Neuro: Alert and oriented x 3, speech normal,flat mood/affect, cran nerve 2-12 intact grossly : deferred Principal Diagnosis left 6th rib fracture atypical chest pain (non cardiac) dyspnea on exertion hypoxia on exertion obesity, microcytic anemia, type 2 diabetes mellitus without alf use of insulin, chronic kidney disease stage III 3.1 cm left renal lesion likely renal cyst Discharge Exam Constitutional WD/WN, vitals as above Eyes PERRL, conjunctivae normal, anicteric sclerae ENMT external ear and nose normal, oropharynx normal Neck trachea midline, no thyromegaly Respiratory normal respiratory effort, lungs clear to auscultation Cardiovascular RRR, no murmur, no edema Gastrointestinal (Abdomen) normal bowel sounds, soft, nontender, no hepatosplenomegaly Neurologic PERRL, EOMI, accommodation nl, no face palsy, no dysarthria CN's II-XI intact bilaterally Psychiatric A+Ox3, euthymic affect Discharge Data Allergies Allergy/AdvReac Type Severity Reaction Status Date / Time No Known Allergies Allergy Unverified 10/04/16 16:52 Consultations 10/10/18 18:26 Consult Cardiology Routine Ordered Studies 10/10/18 13:05 US abdomen limited Stat US venous doppler LE LT Stat 10/10/18 20:15 CT angio chest PE protocol Stat Hospital Course (1) Chest pain, precordial: This is a 73-year-old white female with significant past medical history of HTN , HLD, CKD stage III, GERD, depression, osteoarthritis, chronic back pain, T2 DM who presents to [facility] secondary to dyspnea on exertion times 1 month/chest pain times 1 day. In ED workup revealed microcytic anemia hemoglobin 9.7, hematocrit 32.3, platelets 245, WBC 8.4, BUN 16, creatinine 1.12, glucose 107, TSH 1.54, BNP 46, troponin within limits. CXR reveals cardiomegaly and concern for CHF; however BNP wnl. LLE venous U/S negative, LUQ U/S negative for acute abnormality, except L renal cysts. found to have non cardiac chest pain as causes likely from musculoskeletal etiology with left 6th rib fracture (closed fracture) on this admission (2) STARK (dyspnea on exertion): She had a prior nonischemic dobutamine stress echocardiogram in 2017. An outpatient sleep study had recently been performed the results of this are pending. Pulmonary artery dilatation noted on CT scan, no significant pulmonary hypertension noted on echocardiogram. There are no findings on her echocardiogram to correlate with her symptoms. prescribe daily iron for iron deficiency anemia found to have left 6th rib fracture (closed fracture) on this admission also found to have hypoxia with oxygen desaturation on exertion and was evaluated with respiratory therpist with 2 step test - discharge on 2 liter/min oxygen with ambulation (3) Microcytic anemia: -last colonoscopy 07/2017 with hyperplastic polyp -mild progressive downtrend of CBC -Hgb around 10, prescribe daily iron for iron deficiency anemia (4) HTN (hypertension): -continue metoprolol, losartan, HCTZ (5) HLD (hyperlipidemia): -continue statin (6) T2DM (type 2 diabetes mellitus): Type 2 diabetes mellitus without joint terminal attack controller use of insulin -A1C 7.0 10/03/18 -continue metformin as outpatient -on losartan for renal protection (7) CKD (chronic kidney disease) stage 3, GFR 30-59 ml/min: baseline chronic kidney disease stage 3 3.1 cm left renal lesion partially unenhanced exam. This favors a cyst however a small portion of this lesion may measure above water attenuation. Therefore, a follow-up nonemergent renal ultrasound is recommended (can be done as outpatient) (8) Obesity: -class 3 severe obesity ude to excess calories -encourage lifestyle modifications (9) GERD (gastroesophageal reflux disease): continue PPI (10) Depression: continue zoloft (11) DVT prophylaxis: -lovenox 40mg SQ Q24hr as inpatient Discharge Diagnosis left 6th rib fracture atypical chest pain (non cardiac) dyspnea on exertion hypoxia on exertion obesity, microcytic anemia, type 2 diabetes mellitus without joint terminal attack controller use of insulin, chronic kidney disease stage III 3.1 cm left renal lesion likely renal cyst Discharge Instructions [place] PDMP was checked and patient has active prescription as outpatient for tramadol from primary care doctor. Patient can continue outpatient tramadol as instructed for pain control In addition, because of diagnosis of left rib fracture, patient also given prescription oxycodone-acetaminophen (7.5 mg/ 325 mg ) every 4 hours as needed for pain for a total of 18 tablets Patient also discharged on home oxygen therapy as 2 liter per minute with ambulation Patient should take daily iron supplements Patient should follow up appointments 10/16/2018 5:40 PM Jonny Cool MD Internal Medicine [facility] ((3.1 cm left renal lesion likely renal cyst, follow-up nonemergent renal ultrasound is recommended)) 10/26/2018 11:00 AM Antonia Angel PA-C Department Internal Medicine [facility] 10/26/2018 2:00 PM RUIZ Tirado Sleep Disorders, [facility] 11/01/2018 11:15 AM Pattie Cevallos DO Nutrition & Weight Management, [facility] 12/28/2018 2:00 PM Tino Kline PA-C Cardiology [facility] Total Time Total Time Spent Total Time Spent (In Minutes): 40 minutes Total Time Includes: Examination of the Patient, Discharge Planning and Medication Reconciliation Discharge Plan Discharge Items Patient Disposition: Home - Self-Care Reason For Visit: DYSPNEA ON EXERTION Discharge Diagnosis: atypical chest pain (non cardiac), dyspnea on exertion, hypoxia on exertion, left 6th rib fracture, obesity, microcytic anemia, type 2 diabetes mellitus without joint terminal attack controller use of insulin, chronic kidney disease stage III, 3.1 cm left renal lesion likely renal cyst Condition: Good Discharge Goals: Decrease discomfort and Improve disease control Activity: Resume your previous activity Non-emergency contact: Primary Care Provider and Specialist Call non-emergency contact if: you have any medication questions Diet: Regular and Carb Consistent or DM2 Addtl Provider Instructions: Discharge Instructions [place] PDMP was checked and patient has active prescription as outpatient for tramadol from primary care doctor. Patient can continue outpatient tramadol as instructed for pain control In addition, because of diagnosis of left rib fracture, patient also given prescription oxycodone-acetaminophen (7.5 mg/ 325 mg ) every 4 hours as needed for pain for a total of 18 tablets Patient also discharged on home oxygen therapy as 2 liter per minute with ambulation Patient should take daily iron supplements Patient should follow up appointments 10/16/2018 5:40 PM Jonny Cool MD Internal Medicine [facility] (3.1 cm left renal lesion likely renal cyst, follow-up nonemergent renal ultrasound is recommended) 10/26/2018 11:00 AM Antonia Angel PA-C Department Internal Medicine [facility] 10/26/2018 2:00 PM RUIZ Tirado Sleep Disorders, [facility] 11/01/2018 11:15 AM Pattie Cevallos DO Nutrition & Weight Management, [facility] 12/28/2018 2:00 PM Tino Kline PA-C Cardiology [facility] Prescriptions: New oxycodone-acetaminophen [Endocet] 7.5-325 mg Tablet 1 tab PO Q4H PRN (Reason: severe pain) 3 Days Qty: 18 RF: 0 ferrous sulfate 325 mg (65 mg iron) Tablet,Delayed Release (Dr/Ec) 325 mg PO QAM 30 Days Qty: 30 RF: 0 Continue losartan 50 mg Tablet 50 mg PO DAILY RF: 0 metformin 500 mg Tablet 500 mg PO BID RF: 0 atorvastatin 20 mg Tablet 20 mg PO DAILY RF: 0 sertraline 100 mg Tablet 100 mg PO DAILY RF: 0 omeprazole 40 mg Capsule,Delayed Release(Dr/Ec) 40 mg PO DAILY RF: 0 tramadol 50 mg Tablet 50 mg PO QID PRN (Reason: Pain) RF: 0 docusate sodium [Stool Softener] 100 mg Capsule 100 mg PO DAILY RF: 0 metoprolol succinate 25 mg Tablet Extended Release 24 Hr 25 mg PO DAILY RF: 0 ondansetron 4 mg Tablet,Disintegrating 4 mg PO Q6 PRN (Reason: Nausea) RF: 0 [id number] [Excedrin Migraine] 250-250-65 mg Tablet 2 tab PO Q6H PRN (Reason: Headache) RF: 0 buspirone 15 mg Tablet 15 mg PO BID RF: 0 hydrochlorothiazide 12.5 mg Tablet 12.5 mg PO DAILY RF: 0 loratadine 10 mg Capsule 10 mg PO DAILY RF: 0 [id number] [Centrum Silver Women] 8 mg iron-400 mcg-300 mcg Tablet 1 tab PO DAILY RF: 0 Visit Report Forms: My [facility] [employer] [facility] Stand-Alone Forms: My [facility] Discharge Orders: Discharge Order (Routine); Ordered 10/11/18 Ordered By: Robert Parra Admission Data Admit Date/Time: 10/10/18 16:32 Attending Provider: Robert Parra Admit Provider: Lady Vaughn Primary Care Provider: Jonny Cool Other Providers: Lady Vaughn ; Will Wan Service: Telemetry
[2018-10-11] MEDS ORDERED: PERCOCET 5/325MG HOMEPACK PO ONE (17:30)
[2018-10-11] MEDS ORDERED: LIDOCAINE 5% 1 PATCH TD SCH (21:00)
[2018-10-12] MEDS ORDERED: FERROUS SULFATE 325 MG/7.4 ML UDP PO SCH (09:00)
[2018-10-12] MEDS ORDERED: FERROUS SULFATE 325 MG TAB PO SCH (09:00)
== END 2018-10-11 18:42 | disposition home or self-care (01) ==
LOC: 2N 12:35 → ED 12:35 → SUATTDRO 16:32 → 2N 18:00